=== PATIENT | female | born 1965 | race Caucasian/White ===

== ENCOUNTER 2021-05-27 11:23 | Day surgery (SDC) | payer BC ==
[2021-05-19 12:18] VITALS: BMI 25.0
[2021-05-27] MEDS ORDERED: Midazolam HCl 2 mg/2 ml Vial ONE (12:40)
[2021-05-27] MEDS ORDERED: Ondansetron PF 4 MG/2 ML Vial ONE (13:00)
[2021-05-27] MEDS ORDERED: PROPOFOL 200 MG/20 ML VIAL ONE (13:00)
[2021-05-27] MEDS ORDERED: Dexamethasone 20 MG/5 ML VIAL ONE (13:00)
[2021-05-27] MEDS ORDERED: Lidocaine 1% PF 5 ML VIAL ONE (13:00)
== END 2021-05-27 14:45 | disposition home or self-care (01) ==
LOC: MRI 11:23
PROVIDERS: ATTEND Neurological Surgery
DX: M48.061 Spinal stenosis, lumbar region without neurogenic claudication (principal); M43.16 Spondylolisthesis, lumbar region; M48.07 Spinal stenosis, lumbosacral region; Z88.5 Allergy status to narcotic agent; Z88.6 Allergy status to analgesic agent
CPT/HCPCS: 72148; J1100; J2250; J2405; J2704